=== PATIENT | female | born 1970 | race Asian ===

== ENCOUNTER 2017-09-23 06:41 | Emergency (ER) | payer BC ==
[~2017-09-23] VITALS: Ht 167.6 cm; Wt 68.2 kg
[2017-09-23] MEDS ORDERED: METR250 PO (06:45)
[2017-09-23 08:38] VITALS: BP 122/92
== END 2017-09-23 08:41 | disposition home or self-care (01) ==
LOC: EMS 06:44
DX: R51 Headache (principal); R11.2 Nausea with vomiting, unspecified; K30 Functional dyspepsia; T37.8X5A Adverse effect of other specified systemic anti-infectives and antiparasitics, initial encounter; Y92.89 Other specified places as the place of occurrence of the external cause
CPT/HCPCS: 99281